=== PATIENT | male | born 1970 | race Two or more races ===

== ENCOUNTER 2023-08-29 11:59 | Emergency (ER) | payer OTHER ==
[~2023-08-29] VITALS: Ht 177.8 cm; Wt 115.7 kg
[2023-08-29] MEDS ORDERED: LOSARTAN POTAS100 MG (12:12)
[2023-08-29] MEDS ORDERED: ORPHENADRINE CITRATE 30 MG/ML AMPUL IM ONE (14:30)
[2023-08-29] MEDS ORDERED: KETOROLAC TROMETHAMINE 30 MG VIAL IM ONE (14:30)
== END 2023-08-29 20:57 | disposition home or self-care (01) ==
LOC: EDBD 11:59 → ER 11:59
DX: S49.82XA Other specified injuries of left shoulder and upper arm, initial encounter (principal); W18.39XA Other fall on same level, initial encounter; Y93.F1 Activity, caregiving, bathing; Y92.89 Other specified places as the place of occurrence of the external cause